=== PATIENT | female | born 1925 | race Hispanic/Latino ===

== ENCOUNTER 2017-05-26 19:42 | Emergency (ER) | payer MEDICARE, MEDICAID ==
[~2017-05-26 19:42] MED LIST: ISOVUE-370 76%-LOCM 1 ML ONE
[2017-05-26 20:13] LABS: #Eosinphils 0.1 thou/uL (0.0-0.7); #Lymphocytes 2.3 thou/uL (1.20-3.40); #Monocytes 0.5 thou/uL (0.11-0.59); #Neutrophils 4.6 thou/uL (1.40-6.50); %Basophils 0.5 % (0.0-1.0); %Eosinophils 1.4 % (0.0-10.0); %Lymphocytes 30.6 % (21.0-51.0); %Monocytes 6.6 % (0.0-10.0); Hematocrit 43.9 % (36.0-47.0); Mean Platelet Volume 9.2 fL (7.4-10.4); Red Blood Cell (RBC) Count 4.94 mill/uL (4.20-5.40); White Blood Cell (WBC) Count 7.5 thou/uL (4.8-10.8)
[2017-05-26 20:18] LABS: PTT 29.3 SEC (22.9-36.1)
[2017-05-26 20:19] LABS: Prothrombin Time 13.8 SEC (12.0-14.7)
[2017-05-26 20:30] LABS: Lactic Acid - Sepsis 0.8 mmol/L (0.5-2.2)
[2017-05-26 20:39] LABS: Troponin I Less than 0.010 ng/mL (< 0.028)
[2017-05-26 20:42] LABS: ALT (SGPT) 9 U/L (8-55); AST (SGOT) 13 U/L (5-34); Alkaline Phosphatase 84 U/L (40-150); Anion Gap 11 mmol/L (10-20); BUN (Urea Nitrogen) 20 mg/dL (9.8-20.1); Bilirubin, Total 0.5 mg/dL (0.2-1.2); CK (CPK) 38 U/L (29-168); Calc. Creatinine Clearance 0 mL/min (70-130); Calcium 9.6 mg/dL (7.8-10.44); Carbon Dioxide 27 mmol/L (23-31); Chloride 103 mmol/L (98-107); Estimated GFR-MDRD 55; Globulin 3.5 g/dL (2.4-3.5); Lipase 24 U/L (8-78); Protein, Total 7.5 g/dL (6.0-8.3)
--- NOTE | 2017-05-26 21:28 | RAD ---
PORTABLE AP CHEST X-RAY 05/26/17 HISTORY: Cough and hemoptysis. COMPARISON: 09/23/16 FINDINGS: The cardiac silhouette and pulmonary vasculature are within normal limits. There is accentuation of the bronchovascular markings due to the shallow depth of inspiration. There is mild elevation of the right hemidiaphragm. Vascular calcification seen in the thoracic aorta. No other interval change. IMPRESSION: Stable chest without evidence of acute cardiopulmonary process. There is accentuation of the broncho vascular markings and atelectasis at the right lung base. POS: [facility]
--- NOTE | 2017-05-26 21:40 | CT ---
CT ANGIOGRAM THORAX WITH IV CONTRAST AND 3D RECONSTRUCTIONS 05/26/17 HISTORY: Cough and hemoptysis. Weakness and sore throat. COMPARISON: 01/16/14. There is respiratory motion seen at the lung bases which limits evaluation of the subsegmental bibas ilar pulmonary arteries, but no definite filling defect is seen in the pulmonary arteries to suggest a pulmonary embolus. Dense vascular calcifications are seen in the coronary arteries as well as involving the thoracic ao rta. The thoracic aorta is normal in caliber. There is a mildly enlarged subcarinal lymph node measuring 12 mm in short axis dimension. No promine nt lymph node was seen in this region on the prior exam. No additional enlarged lymph nodes are seen . There is an 11 mm hypodense nodule in the right lobe of the thyroid gland. this does appear larger i n size compared to the prior study where this measured 7 mm. Nonemergent thyroid ultrasound is sugge sted. There is debris within the distal esophagus. A tiny, approximately 3 mm pulmonary nodule seen in the right lower lobe which is stable from the pr ior exam. No additional pulmonary nodule or mass is seen. There is no pleural effusion identified. T here is linear atelectasis at the right lung base. Large calculus is present in the gallbladder whic h was also present on the prior exam. Gallbladder is also distended. However, this is again similar to prior study. Degenerative changes are noted in the spine. IMPRESSION: 1. Suboptimal evaluation of the subsegmental pulmonary arteries at each lung base due to respir atory motion, but there is otherwise no filling defect seen in the pulmonary arteries to suggest a p ulmonary embolus. 2. Low density nodule right lobe of the thyroid gland slightly enlarged from prior study. Nonem ergent thyroid ultrasound is suggested. 3. Large gallbladder calculus with distention of the gallbladder. However, this was present on the prior exam. 4. Stable 3 mm pulmonary nodule right lower lobe. POS: [facility]
== END 2017-05-26 21:38 | disposition home or self-care (01) ==
LOC: ERS 19:42
DX: R04.2 Hemoptysis (principal); E11.9 Type 2 diabetes mellitus without complications; F03.90 Unspecified dementia, unspecified severity, without behavioral disturbance, psychotic disturbance, mood disturbance, and anxiety; Z79.84 Long term (current) use of oral hypoglycemic drugs; Z79.899 Other long term (current) drug therapy
CPT/HCPCS: 36415; 71010; 71275; 80053; 82550; 82553; 83605; 83690; 83880; 84484; 85025; 85379; 85610; 85730; 87040; 93005

== ENCOUNTER 2017-06-21 20:05 | Emergency (ER) | payer MEDICARE, MEDICAID ==
[2017-06-21 21:11] LABS: #Eosinphils 0.1 thou/uL (0.0-0.7); #Lymphocytes 1.4 thou/uL (1.20-3.40); #Monocytes 0.5 thou/uL (0.11-0.59); #Neutrophils 7.4 thou/uL (1.40-6.50); %Basophils 0.1 % (0.0-1.0); %Eosinophils 1.2 % (0.0-10.0); %Lymphocytes 15.1 % (21.0-51.0); %Monocytes 4.9 % (0.0-10.0); Hematocrit 41.2 % (36.0-47.0); Mean Platelet Volume 9.7 fL (7.4-10.4); Red Blood Cell (RBC) Count 4.57 mill/uL (4.20-5.40); White Blood Cell (WBC) Count 9.4 thou/uL (4.8-10.8)
[2017-06-21] MEDS ORDERED: Ondansetron HCl/PF 4 MG/2 ML Vial ONE (21:19)
[2017-06-21 21:27] LABS: Lactic Acid - Sepsis 1.7 mmol/L (0.5-2.2)
[2017-06-21 21:29] LABS: Anion Gap 8 mmol/L (-14-95); POC Est. GFR-MDRD-African-Amer 56 (2-60); POC Estimated GFR-MDRD 46 (2-60); T. Carbon Dioxide 26.6 mmol/L (1.0-85.0); pH (Venous) 7.362 (7.35-7.45); vO2 Saturation-calc 63.5 % (0.0-100.0)
[2017-06-21 21:31] LABS: ALT (SGPT) 10 U/L (8-55); AST (SGOT) 18 U/L (5-34); Alkaline Phosphatase 89 U/L (40-150); Anion Gap 15 mmol/L (10-20); BUN (Urea Nitrogen) 22 mg/dL (9.8-20.1); Bilirubin, Total 0.4 mg/dL (0.2-1.2); Calc. Creatinine Clearance 0 mL/min (70-130); Calcium 9.3 mg/dL (7.8-10.44); Carbon Dioxide 23 mmol/L (23-31); Chloride 101 mmol/L (98-107); Estimated GFR-MDRD 45; Globulin 3.5 g/dL (2.4-3.5); Protein, Total 7.1 g/dL (6.0-8.3)
--- NOTE | 2017-06-21 21:38 | RAD ---
PORTABLE CHEST: History: Fever. Vomiting. Comparison: 05-26-17 FINDINGS: Heart size is borderline with atherosclerotic changes of the aorta. Chronic lung changes are seen. N o focal infiltrate. Slightly prominent right paratracheal density is probably related to tortuous ve ssels. IMPRESSION: Chronic lung change. POS: [facility]
--- NOTE | 2017-06-21 23:31 | CT ---
CT OF ABDOMEN AND PELVIS PERFORMED WITH INTRAVENOUS CONTRAST ENHANCEMENT: History: Fever and abdominal pain. History of hysterectomy. Comparison: 06-21-14 CT of abdomen and pelvis, 05-26-17 CT of the chest. FINDINGS: The lung bases shows some chronic appearing change without focal infiltrates. A pleural based nodule along the left hemidiaphragm is mostly likely a small pleural based node. The liver and spleen are normal in appearance. The pancreas is atrophy. The gallbladder is distended with a large gallstones. This was noted on the previous examination and is unchanged. Right and left adrenal glands are normal in appearance. The right kidney is absent. The left kidney shows a hypodensity compatible with a cyst in the midpole region. There is no significant periaortic or mesenteric lymphadenopathy. CT OF PELVIS PERFORMED WITH INTRAVENOUS CONTRAST ENHANCEMENT: Sigmoid diverticulosis is noted. No definite inflammatory process. Patient had a marked prolapse not ed on the previous exam. The bladder wall is somewhat thickened which may indicate a cystitis. There are what appear to be some post-operative changes of the pelvis related to the prolapse. The append ix is unremarkable. IMPRESSION: 1. Large gallstones with a mildly distended gallbladder. 2. Absent right kidney. 3. Mild bladder wall thickening which could be on the basis of the cystitis. 4. Sigmoid diverticulosis. POS: [facility]
--- NOTE | 2017-06-21 23:55 | ULT ---
GALLBLADDER ULTRASOUND: History: Upper quadrant pain. FINDINGS: Real-time images of the right upper quadrant demonstrate echogenic foci within the gallbladder with shadowing. The common duct is 7 mm. The pancreas is not visualized. The visualized liver parenchyma appears unremarkable. Right kidney is absent. IMPRESSION: 1. Multiple cholelithiasis with a mildly distended gallbladder. 2. Absent right kidney. 3. Borderline sized common bile duct at 7 mm. POS: [facility]
== END 2017-06-22 00:02 | disposition home or self-care (01) ==
LOC: ERS 20:05
DX: R19.7 Diarrhea, unspecified (principal); R11.2 Nausea with vomiting, unspecified; E11.9 Type 2 diabetes mellitus without complications; F03.90 Unspecified dementia, unspecified severity, without behavioral disturbance, psychotic disturbance, mood disturbance, and anxiety; Z79.84 Long term (current) use of oral hypoglycemic drugs; Z79.899 Other long term (current) drug therapy
CPT/HCPCS: 36415; 36416; 51701; 71010; 74177; 76705; 80053; 82330; 82803; 83605; 83690; 85025; 87040; 96361; 96374; A4353; J2405

== ENCOUNTER 2017-08-13 13:42 | Emergency (ER) | payer MEDICARE, MEDICAID ==
[2017-08-13] MEDS ORDERED: Ondansetron HCl/PF 4 MG/2 ML Vial ONE (14:53)
[2017-08-13 14:58] LABS: #Eosinphils 0.1 thou/uL (0.0-0.7); #Lymphocytes 2.2 thou/uL (1.20-3.40); #Monocytes 0.4 thou/uL (0.11-0.59); #Neutrophils 4.2 thou/uL (1.40-6.50); %Basophils 0.5 % (0.0-1.0); %Eosinophils 1.2 % (0.0-10.0); %Lymphocytes 31.9 % (21.0-51.0); %Monocytes 5.7 % (0.0-10.0); Hematocrit 41.8 % (36.0-47.0); Mean Platelet Volume 9.3 fL (7.4-10.4); Red Blood Cell (RBC) Count 4.63 mill/uL (4.20-5.40)
[2017-08-13 15:12] LABS: PTT 28.8 SEC (22.9-36.1); Prothrombin Time 13.4 SEC (12.0-14.7)
[2017-08-13 15:23] LABS: ALT (SGPT) 8 U/L (8-55); AST (SGOT) 17 U/L (5-34); Alkaline Phosphatase 73 U/L (40-150); Anion Gap 12 mmol/L (10-20); BUN (Urea Nitrogen) 15 mg/dL (9.8-20.1); Bilirubin, Total 0.4 mg/dL (0.2-1.2); CK (CPK) 31 U/L (29-168); Calc. Creatinine Clearance 0 mL/min (70-130); Calcium 9.8 mg/dL (7.8-10.44); Carbon Dioxide 25 mmol/L (23-31); Chloride 102 mmol/L (98-107); Estimated GFR-MDRD 64; Globulin 3.4 g/dL (2.4-3.5); Lipase 20 U/L (8-78); Protein, Total 7.3 g/dL (6.0-8.3)
[2017-08-13 15:26] LABS: Troponin I Less than 0.010 ng/mL (< 0.028)
[2017-08-13 15:48] LABS: Bilirubin Negative (Negative); Blood, Urine Negative (Negative); Glucose, Urine (Dipstick) Negative (Negative); Ketone, Urine Negative (Negative); Nitrite Negative (Negative); Protein, Urine (Dipstick) Trace mg/dL (Neg-Trace)
[2017-08-13 15:52] LABS: Bacteria/HPF 4+ HPF (None Seen); RBC/HPF 0-3 HPF (0-3); Squamous Epithelial None Seen HPF (0-3)
[2017-08-13 16:03] LABS: Hyaline Casts/LPF NONE SEEN LPF (0-3 Hyaline)
--- NOTE | 2017-08-13 16:05 | RAD ---
TWO VIEWS CHEST: Comparison: 01-16-14 History: Blood tinged vomit and chest pain. FINDINGS: Two views of the chest shows normal sized cardiomediastinal silhouette with atherosclerotic calcifica tions in the aorta. Interstitial markings are present. There is no evidence of consolidation, mass or pleural effusions. IMPRESSION: 1. No evidence of acute cardiopulmonary disease. 2. Atherosclerotic disease. POS: [facility]
== END 2017-08-13 17:20 | disposition home or self-care (01) ==
LOC: ERS 13:42
DX: N39.0 Urinary tract infection, site not specified (principal); E11.9 Type 2 diabetes mellitus without complications; Z79.84 Long term (current) use of oral hypoglycemic drugs; Z79.899 Other long term (current) drug therapy
CPT/HCPCS: 51701; 71020; 80053; 81003; 81015; 82553; 83690; 84484; 85025; 85610; 85730; 93005; 96361; 96374; A4353; J2405